=== PATIENT | female | born 1950 | race Caucasian/White ===

== ENCOUNTER 2023-08-23 15:55 | Emergency (ER) | payer OTHER, SELFPAY ==
[2023-08-23 16:01] VITALS: BP 118/75; PULSE 93; RESP 18; TEMP 36.8; O2SAT 96; BMI 27.4
--- NOTE | 2023-08-23 16:37 | CRLHL7_ITS ---
For Patients: As a result of the Century Cures Act, medical imaging exams and procedure reports are released immediately into your electronic medical record. You may view this report before your referring provider. If you have questions, please contact your health care provider. INDICATION: Abdominal hernia, pain TECHNIQUE: CT abdomen and pelvis acquired with 83 cc Isovue 370 IV contrast. Permanently recorded images are archived. COMPARISON: PET-CT 04/11/2023 FINDINGS: Lower chest: Unremarkable. Liver: Unremarkable. Normal in size and attenuation. No suspicious masses. Gallbladder and bile ducts: Hydropic gallbladder. No stones or inflammation. No biliary dilatation. Pancreas: Unremarkable. No mass or inflammation. Spleen: Unremarkable. Normal in size. No masses. Adrenal glands: Unremarkable. No nodules. Kidneys, Ureters, and Bladder: Mild right-sided hydroureteronephrosis from the level of the mid ureter proximally. The narrowed occurs in an area of ill-defined soft tissue density along the right anterior pelvic sidewall, series 2, image 108. unremarkable ureters and bladder. GI tract: Diverticulosis. No obstruction. The appendix is not clearly visualized. Vasculature: Normal caliber abdominal aorta with mild atherosclerotic calcification. Mesenteric arteries are patent. Lymph nodes: Several mildly enlarged mesenteric lymph nodes: Measured up to 12 mm in short axis, for example series 2, image 93 and image 90. Peritoneum/Abdominal Wall: 6.2 x 2.7 x 5.6 cm supraumbilical midline ventral hernia with a 4.7 x 3.9 cm neck containing a short segment of transverse colon. No evidence for obstruction or strangulation. There are several soft tissue nodules along the right paracolic gutter lateral to the ascending colon and several in the pelvic cul-de-sac, for example series 5, image 91 and image 80. Several of these nodules appear new compared to the prior PET-CT. No free air or significant free fluid. Right pelvic retroperitoneal surgical clips. Pelvis: Ill-defined soft tissue density along the right anterior pelvic sidewall in the region of the hypermetabolic lesion seen on the prior PET-CT. Status post hysterectomy. Bones: Unremarkable for age. IMPRESSION: 1. Moderate-sized supraumbilical midline ventral hernia, as described above containing a short segment of transverse colon. No evidence for obstruction or strangulation of the involved colon. 2. 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 Recommend correlation with PET-CT. 3. Ill-defined soft tissue density along the right anterior pelvic sidewall suspicious for persistent malignancy/metastatic disease. However, this could represent scarring/fibrotic changes from previous treatment/surgery. Recommend correlation with PET-CT. There is new mild right hydroureteronephrosis from this area proximally. 4. Diverticulosis without evidence of diverticulitis. Please note that all CT scans at this facility use dose modulation, iterative reconstruction, and/or weight-based dosing when appropriate to reduce radiation dose to as low as reasonably achievable. Dictated by Josh Kwok MD @ 08/23/2023 7:10:57 PM (Electronically Signed)
--- NOTE | 2023-08-23 16:39 | ED_ITS ---
HPI - General Adult General Chief complaint: Constipation Stated complaint: hernia on stomach Time Seen by Provider: 08/23/23 16:31 History of Present Illness HPI narrative: This 72-year-old female comes in reporting upper epigastric abdominal pain. She states that she has a hernia in this area and was told by her physician to come to the emergency room to have a CT scan to evaluate the hernia. She states that she had a CT scan for this same reasons a couple months ago. She does not report any nausea, vomiting, fever. she states that her symptoms seem more prominent when upright compared to laying down. She has had some constipation recently but did have a good bowel movement prior to arrival. She is taking Percocet chronically and has constipation related to opiate use. Related Data Home Medications Medication Instructions Recorded Confirmed alendronate 70 mg tablet 70 mg PO 08/23/23 amlodipine 10 mg tablet 10 mg PO DAILY 08/23/23 08/23/23 clonazepam 0.5 mg tablet 0.5 mg PO BID PRN anxiety 08/23/23 08/23/23 lamotrigine 100 mg tablet 100 mg PO 3XD 08/23/23 08/23/23 omeprazole 20 mg capsule,delayed 20 mg PO BID 08/23/23 08/23/23 release oxycodone-acetaminophen 5 mg-325 1 tab PO 3XD PRN 08/23/23 08/23/23 mg tablet peg 3350-electrolytes 236 ml PO 08/23/23 gram-22.74 gram-6.74 gram-5.86 gram solution (GaviLyte-G) quetiapine 100 mg tablet 100 mg PO QPM 08/23/23 08/23/23 quetiapine 400 mg tablet 400 mg PO QPM 08/23/23 08/23/23 trazodone 50 mg tablet mg PO 08/23/23 zolpidem 6.25 mg tablet,extended 6.25 mg PO QPM PRN insomnia 08/23/23 08/23/23 release,multiphase Allergies Allergy/AdvReac Type Severity Reaction Status Date / Time No Known Drug Allergies Allergy Verified 08/23/23 18:00 Review of Systems Status of ROS: Reports: 10 or more systems reviewed and unremarkable except as noted in History and below Narrative: Constitutional: No fevers, no weight gain or loss. Eyes: No discharge. No vision changes. HENT: No congestion, no sore throat, no ear pain. Cardiovascular: No chest pain, no palpitations. Respiratory: No shortness of breath, no wheezes, no cough. Gastrointestinal: No vomiting, no diarrhea. Abdominal pain as described above. Genitourinary: No dysuria, no hematuria. Musculoskeletal: Normal range of motion. Skin: No rashes, no pruritis. Neurological: No dizziness, weakness, sensory change, speech change. Endo/Heme/Allergies: No bruising or bleeding. No polydipsia. Pysch: no suicidality, no anxiety, no insomnia. All other systems reviewed and are negative. [facility] Social History Smoking Status: Current every day smoker What tobacco products do you use: cigarettes Smoking packs per day: 0.5 Smoking cigarettes per day: 10.0 Years smoked: 50 Smoking pack-years: 25.00 Do you use any of these nicotine containing products: None Second hand tobacco smoke exposure: No How often do you have a drink containing alcohol: never AUDIT-C Alcohol total score: 0 Non-prescribed substance use: denies use Exam Narrative: Exam Narrative: Constitutional: Well-developed, well-nourished, no acute distress. HEENT: Normocephalic, atraumatic. Neck: Normal range of motion. Nontender. Supple. Heart: Regular. No murmurs. Normal rate. Intact distal pulses. Lungs: Clear to auscultation. No chest discomfort. No wheezes, rhonchi, or rales. Abdomen: Normal bowel sounds. Mild tenderness in the upper epigastric region. No rebound tenderness. Genitalia: Deferred. Back: No midline tenderness. Normal range of motion. Extremities: Normal range of motion. No injury. Skin: Intact. No rash. Warm. No erythema or pallor. Neurologic: No altered sensation. No weakness. Alert and oriented. Psychiatric: No suicidality. No anxiety or depression. No insomnia. Nursing notes and vitals signs are reviewed. Const: Vital Signs, click to edit/add: Vital Signs - 24 hr 08/23/23 16:01 Temperature 98.3 F Pulse Rate [Pulse Oximeter] 93 Respiratory Rate 18 Blood Pressure [Ri ght Upper Arm] 118/75 Pulse Oximetry 96 Oxygen Delivery Me thod Room Air Course Vital Signs Vital signs: Initial Vital Signs Temperature 98.3 F 08/23/23 16:01 Temperature Source Temporal Artery Scan 08/23/23 16:01 Pulse Rate 93 08/23/23 16:01 Respiratory Rate 18 08/23/23 16:01 Blood Pressure 118/75 08/23/23 16:01 Blood Pressure Mean 89 08/23/23 16:01 Blood Pressure Position Sitting 08/23/23 16:01 Pulse Oximetry 96 08/23/23 16:01 Oxygen Delivery Method Room Air 08/23/23 16:01 Vital Signs Temperature 98.3 F 08/23/23 16:01 Pulse Rate 93 08/23/23 16:01 Respiratory Rate 18 08/23/23 16:01 Blood Pressure 118/75 08/23/23 16:01 Pulse Oximetry 96 08/23/23 16:01 Oxygen Delivery Method Room Air 08/23/23 16:01 Temperature 98.3 F 08/23/23 16:01 Pulse Rate 93 08/23/23 16:01 Respiratory Rate 18 08/23/23 16:01 Blood Pressure 118/75 08/23/23 16:01 Pulse Oximetry 96 08/23/23 16:01 Oxygen Delivery Method Room Air 08/23/23 16:01 Medical Decision Making MDM Narrative Medical decision making narrative: This patient comes in with concern about a abdominal hernia that is related to previous surgery. She does have some discomfort in her upper abdomen where the hernia is located. She also reports some pain in her lower abdomen. She has had and hysterectomy because of ovarian cancer. CT imaging of the abdomen and pelvis is obtained with IV contrast. There is no sign of entrapment or incarceration of her abdominal hernia. 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 The patient is aware of this and states that she has a PET scan scheduled in 3 days. She is okay to be discharged home. She states that her abdominal pain is not severe and does not need medication for pain. Lab Data Labs: Lab Results 08/23/23 Range/Units 16:56 Creatinine 1.0 (0.5-1.5) mg/dL Estimated Creat Clear 49.00 Estimated GFR 61 ml/min Imaging Data CT scan - abdomen: Radiologist's impression: 1. Moderate-sized supraumbilical midline ventral hernia, as described above containing a short segment of transverse colon. No evidence for obstruction or strangulation of the involved colon. 2. 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 Recommend correlation with PET-CT. 3. Ill-defined soft tissue density along the right anterior pelvic sidewall suspicious for persistent malignancy/metastatic disease. However, this could represent scarring/fibrotic changes from previous treatment/surgery. Recommend correlation with PET-CT. There is new mild right hydroureteronephrosis from this area proximally. 4. Diverticulosis without evidence of diverticulitis. Discharge Plan Discharge Clinical Impression: Abdominal hernia Patient Disposition: Home, Self-Care Condition: Stable Additional Instructions: Follow up with MD as scheduled. Use [id number] medicines as needed and directed. Return if worsening. Prescriptions: No Action trazodone 50 mg tablet PO alendronate 70 mg tablet 70 mg PO clonazepam 0.5 mg tablet 0.5 mg PO BID PRN (Reason: anxiety) quetiapine 100 mg tablet 100 mg PO QPM oxycodone-acetaminophen 5-325 mg tablet 1 tab PO 3XD PRN amlodipine 10 mg tablet 10 mg PO DAILY omeprazole 20 mg capsule,delayed release(DR/EC) 20 mg PO BID lamotrigine 100 mg tablet 100 mg PO 3XD zolpidem 6.25 mg tablet,ext release multiphase 6.25 mg PO QPM PRN (Reason: insomnia) quetiapine 400 mg tablet 400 mg PO QPM peg 3350-electrolytes [GaviLyte-G] 236-22.74-6.74 -5.86 gram recon soln PO Follow Up/Referrals: Michelle Michelle DO [Primary Care Provider] - Stand Alone Forms: [facility] Info Instructions
[2023-08-23 17:17] LABS: Estimated Glomerular Filt Rate 61 ml/min
== END 2023-08-23 20:17 | disposition home or self-care (01) ==
PROVIDERS: Emergency Provider Emergency Medicine Emergency Medical Services; PCP Family Medicine
DX: K46.9 Unspecified abdominal hernia without obstruction or gangrene (principal)
CPT/HCPCS: 36415; 74177; 82565; 99284; Q9967